=== PATIENT | female | born 1975 ===

== ENCOUNTER → 2020-02-05 | Outpatient (CLI) | payer OTHER | END | disposition home or self-care (01) | LOC: HBOWC 10:54 | PROVIDERS: ATTEND Nurse Practitioner Adult Health | DX: S81.851A Open bite, right lower leg, initial encounter (principal); F32.9 Major depressive disorder, single episode, unspecified; Z86.14 Personal history of Methicillin resistant Staphylococcus aureus infection; W54.0XXA Bitten by dog, initial encounter; Y93.89 Activity, other specified; Y92.89 Other specified places as the place of occurrence of the external cause; Y99.8 Other external cause status | CPT/HCPCS: G0463; Z7500 ==